=== PATIENT | female | born 1995 | race Caucasian/White ===

== ENCOUNTER 2020-09-15 18:35 | Emergency (ER) | payer BC, SELFPAY ==
--- NOTE | 2020-09-15 18:41 | ED.FEMALEGU ---
HPI - Female Genitourinary General Chief complaint: Urogenital-Female Stated complaint: uti Time Seen by Provider: 09/15/20 18:41 Source: patient and RN notes reviewed Mode of arrival: ambulatory Limitations: no limitations History of Present Illness HPI Narrative: 25-year-old female presents to the [facility] with complaints of symptoms of UTI since Wednesday, 4 days ago. Patient has had nausea, lower abdominal pressure, lower back pain, frequency and urgency. Has had fevers. Denies any significant past history. Related Data Allergies Allergy/AdvReac Type Severity Reaction Status Date / Time No Known Allergies Allergy Unknown Unknown Verified 09/15/20 18:50 Review of Systems Review of Systems: All systems reviewed & are unremarkable except as noted in HPI and below Constitutional: Constitutional: Reports as per HPI and Reports chills Eyes: Eyes: Reports no additional eye complaints Cardiovascular: Cardiovascular: Reports no additional cardiovascular complaints and Denies chest pain Respiratory: Respiratory: Reports no additional respiratory complaints, Denies chest congestion, Denies cough, Denies dyspnea and Denies wheezing Gastrointestinal: Gastrointestinal: Reports as per HPI, Denies constipation, Denies diarrhea, Reports nausea and Reports vomiting Genitourinary: Genitourinary: Reports as per HPI, Reports dysuria, Denies pelvic pain, Denies flank pain and Denies vaginal discharge Musculoskeletal: Musculoskeletal: Reports as per HPI and Reports back pain (Lower) Integumentary/Breasts: Skin/Breast: Reports system reviewed and no additional complaints, except as docu and Denies rash Neurologic: Reports system reviewed and no additional complaints, except as documented and Denies headache(s) Psychiatric: Psychiatric: Reports no additional psychiatric complaints PMFSH Social History Social History Smoking status: Never smoker Alcohol intake: never Gender identity (if verbalized by the patient): Female Comments At the time of my signature, I reviewed and agree with the nursing past medical, surgical, social, and family history. There is no relevant family history pertinent to the patient complaint. Exam Const: General: alert and ill appearing acutely Nutritional Appearance: well nourished and obese morbidly obese Orientation/consciousness: patient oriented x3 HENMT: Head: normal to inspection Neck: Neck: normal visual inspection, no lymphadenopathy and no meningeal signs Chest: Chest palpation & inspection: normal inspection of the chest Resp: Effort & Inspection: normal respiratory effort and no use of accessory muscles Auscultation: clear to auscultation bilaterally, no rales, no rhonchi and no wheezes Cardio: Rate: regular rate Rhythm: regular rhythm GI: GI Palp: Yes Soft to palpation, No Tenderness to palpation present (GI), No Guarding due to palpation present (GI) and No Rebound tenderness present Auscultation: normal bowel sounds : General: Yes Bladder palpation abnormal tender and Yes no CVA tenderness Back/Spine/Pelvis: Back: no CVA tenderness Other: low back pain Skin: General skin exam: normal color Rashes: no rashes Wounds: no wounds Neuro: General: patient oriented x3, moves all extremities, no meningeal signs and no focal motor deficits Speech: normal speech Gait exam (Neuro): Normal gait present Extrem: General: normal to inspection and no pedal edema Psych: Appearance: grossly normal and well kempt Mental Status: mental status grossly normal Affect: normal affect Attitude: cooperative Thought content: Yes Normal thought content present Judgement: Good judgement present (Psych) Course Course Emergency Course: Discharge instructions reviewed with patient, as well as provided in writing per nursing staff. The instructions also include specific and strict return/GO TO THE ER as well as f/u information. All questions have b
[2020-09-15 18:43] VITALS: BP 140/90; PULSE 118; RESP 16; TEMP 37.9; O2SAT 100
[2020-09-15 18:50] VITALS: BP 140/90; PULSE 118; RESP 16; TEMP 37.9; O2SAT 100
[2020-09-15] MEDS: cefTRIAXone 1 GM VIAL IM (19:05)
[2020-09-15] MEDS: LIDOCAINE HCL 1% LOCAL INJ 20 ML VIAL 2.1 ML IM (19:05)
[2020-09-15 19:11] VITALS: TEMP 37.9
[2020-09-15] MEDS: ACETAMINOPHEN 500 MG TABLET 1000 MG PO (19:11)
[2020-09-15 19:29] VITALS: TEMP 38.7
[2020-09-15] MEDS: IBUPROFEN 600 MG TABLET PO (19:29)
[2020-09-15 19:49] VITALS: TEMP 38.3
== END 2020-09-15 19:49 | disposition home or self-care (01) ==
PROVIDERS: Emergency Provider Nurse Practitioner
DX: N30.01 Acute cystitis with hematuria (principal)
CPT/HCPCS: 81003; 81025; 87077; 87086; 87088; 87186; 96372; 99213; A9270; G0463; J0696

== ENCOUNTER 2020-09-16 17:14 | Emergency (ER) | payer BC, MEDICAID, SELFPAY ==
[2020-09-16 17:15] VITALS: BP 128/84; PULSE 130; RESP 20; TEMP 37.3; O2SAT 98
[2020-09-16 17:32] LABS: Basophils Absolute Auto 0.1 K/mm3 (0.0-0.1); Basophils Percent Auto 0.4 % (0.2-1.2); Eosinophils Absolute Auto 0.1 K/mm3 (0-0.3); Eosinophils Percent Auto 0.5 % (0-4.4); Immature Granulocyte Absolute 0.09 K/mm3 (0.00-0.031); Immature Granulocyte Percent A 0.5 % (0-0.5); Lymphocytes Percent Auto 14.4 % (18.3-44.2); Mean Corpuscular HGB Conc 33.3 g/dl (32-36); Mean Corpuscular Volume 93.1 fl (80-100); Mean Platelet Volume 11.6 fl (7.4-10.4); Monocytes Absolute Auto 1.2 K/mm3 (0.1-0.6); Monocytes Percent Auto 7.1 % (2.6-8.5); Neutrophils Absolute Auto 12.9 K/mm3 (1.3-6.7); Neutrophils Percent Auto 77.1 % (45.5-73.1); Platelet Count Result 240 k/mm3 (150-375); Red Blood Count 4.19 M/mm3 (4.2-5.4); Red Cell Distribution Width 12.8 % (11.5-14.5); White Blood Count 16.7 K/mm3 (4.5-10.0)
[2020-09-16 17:38] LABS: Add Urine Microscopic? YES; Appearance Urine Cloudy (Clear); Bacteria Urine Trace /hpf; Bilirubin Urine Negative (Negative); Blood Urine 3+ (Negative); Color Urine Amber (Yellow); Glucose Urine UA Negative (Negative); Ketones Urine Trace mg/dL (Negative); Leukocyte Esterase Ur 1+ LEU/UL (Negative); Mucus Urine Rare /lpf; Nitrate Urine Negative (Negative); Protein Urine 2+ mg/dL (Negative); RBC Urine >75 /hpf (0-2); Specific Grav Ur 1.021 (1.001-1.035); Squamous Epithelial Cell Urine Many /hpf (Few); Transitional Epi Cells Urine Rare /hpf (None Seen); WBC Urine 31-50 /hpf
[2020-09-16 17:44] LABS: Alanine Aminotransferase 60 U/L (4-35); Alkaline Phosphatase 133 U/L (38-126); Anion Gap 14 mmol/L (8-16); Aspartate Amino Transferase 28 U/L (14-36); Bilirubin,Total 0.6 mg/dL (0.2-1.3); Blood Urea Nitrogen 8 mg/dL (7-17); Calcium 8.8 mg/dL (8.4-10.2); Carbon Dioxide 22 mmol/L (22-30); Chloride 104 mmol/L (98-107); Estimated CRCL calculation 97 ml/min; Estimated Glomerular Filt Rate > 60; Glucose 109 mg/dL (65-105); Potassium 3.5 mmol/L (3.4-5.0); Sodium 140 mmol/L (137-145)
--- NOTE | 2020-09-16 19:02 | PC.NURSE ---
Pt came up to triage desk and states that she is going to go to another hospital
== END 2020-09-16 19:02 | disposition left against medical advice (07) ==
PROVIDERS: Emergency Provider Emergency Medicine
DX: R11.2 Nausea with vomiting, unspecified (principal)
CPT/HCPCS: 36415; 80053; 81001; 85025; 99199

== ENCOUNTER 2024-06-12 07:21 | Emergency (ER) | payer OTHER, SELFPAY ==
[2024-06-12 07:27] VITALS: BP 137/90; PULSE 113; RESP 20; TEMP 36.6; O2SAT 100
--- NOTE | 2024-06-12 09:18 | ED.SKABFB ---
HPI - Skin/Abscess/Foreign Bdy General Chief complaint: Skin/Abscess/Foreign Body Stated complaint: right labial abscess Time Seen by Provider: 06/12/24 07:53 History of Present Illness HPI narrative: Patient is a 29-year-old female who presents ER with concern for lump/mass in her labia. She has had a chronic cyst in the area that she began messing with a few days ago. It then became enlarged and painful. It is intermittently drained. She is very tender. No dysuria. Related Data Allergies Allergy/AdvReac Type Severity Reaction Status Date / Time No Known Allergies Allergy Unknown Unknown Verified 06/12/24 07:29 Review of Systems Constitutional: Constitutional: Reports no additional constitutional complaints ENT: Reports system reviewed and no additional complaints, except as documented Cardiovascular: Cardiovascular: Reports no additional cardiovascular complaints Respiratory: Respiratory: Reports no additional respiratory complaints Genitourinary: Genitourinary: Reports no additional female genitourinary complaints PMFSH Past Medical History Medical History (Updated 06/12/24 @ 18:36 by Wayne Corrales MD) Healthy female adult Surgical History Surgical History (Updated 06/12/24 @ 18:36 by Wayne Corrales MD) No pertinent past surgical history Social History Social History Smoking status: Never smoker Alcohol intake: never Gender identity (if verbalized by the patient): Female Exam Narrative: GENERAL: uncomfortable-appearing, well-nourished, and in no acute distress. HEAD: Normocephalic, atraumatic. ENT: Mucous membranes moist. CHEST: Clear to auscultation. No respiratory distress. HEART: Regular rate and rhythm. Normal peripheral pulses. ABDOMEN: Soft, nontender, nondistended. : Swelling right labia minora and fold with fluctuance. Also fluctuant within the vagina as well. Mild vaginal bleeding. The swelling is more superior near the clitoris, not inferior where a bartholins gland would be. EXTREMITIES: Normal range of motion. No edema. SKIN: Warm, dry, no rash. NEURO: Alert and oriented x3. PSYCH: Normal mood and affect. Course Course Emergency Course: Patient with Parkway's gland abscess that was drained with a fine-needle aspiration and palpation after talking to Dr. Ram with Gynecology. Patient will be started on oral antibiotics and may follow-up in his clinic. Vital Signs Vital signs: Vital Signs Temperature 97.9 F 06/12/24 07:27 Pulse Rate 113 H 06/12/24 07:27 Respiratory Rate 20 06/12/24 07:27 Blood Pressure 137/90 06/12/24 07:27 Pulse Oximetry 100 06/12/24 07:27 Oxygen Delivery Room Air 06/12/24 07:27 Temperature 97.9 F 06/12/24 07:27 Pulse Rate 113 H 06/12/24 07:27 Respiratory Rate 20 06/12/24 07:27 Blood Pressure 137/90 06/12/24 07:27 Pulse Oximetry 100 06/12/24 07:27 Oxygen Delivery Room Air 06/12/24 07:27 Procedures Abscess I/D skene: Date of Incision: 06/12/24 Time of Incision: 09:10 Side (if applicable): right Local Anesthetic: lidocaine 1% and with epi Amount of anesthesia used (mL): 3 Technique: needle aspiration Irrigation: No Packing used?: none I&D Results: Pus Discharge Plan Discharge Clinical Impression: Abscess of Parkway duct Patient Disposition: Home, Self-Care Condition: Stable Instructions: Antibiotic Form, Abscess (ED) Additional Instructions: You have an abscessed cyst of your Parkway's gland. Apply warm compresses and do warm Sitz salt water baths twice a day to keep very soft and encourage drainage. Take Tylenol with hydrocodone for pain. Take antibiotics to help prevent recurrent infection. Follow-up with Gynecology. Patient Language: Palestinian Prescriptions: New cefuroxime axetil 500 mg tablet 500 mg PO Q12H Qty: 14 0RF hydrocodone-acetaminophen 5-325 mg tablet 1 tablet PO Q6H PRN (Reason: pain) Qty: 8 0RF No Action sulfamethoxazole-trimethoprim [Bactrim DS] 800-160 mg tablet 1 tablet PO Q12H Qty: 14 0RF ondansetron HCl [Zofran] 4 mg tablet 4 mg PO Q8H PRN (Reason: nausea and vomiting) Qty: 12 0RF Follow-up/Referrals: Jerry Wang MD [Physician] - 1 Week UNKNOWN,DOCTOR [Primary Care Provider] -
[2024-06-12] MEDS: LIDO 1%/EPINEPHRINE 1:100,000 20 ML VIAL (09:26)
[2024-06-12] MEDS: HYDROcodone/acetaminophen (*CRX) 5-325 MG TABLET 1 TAB PO (09:26)
== END 2024-06-12 09:41 | disposition home or self-care (01) ==
PROVIDERS: Emergency Provider Emergency Medicine
DX: N34.0 Urethral abscess (principal)
CPT/HCPCS: 10160; 99283; A9270; J2004

== ENCOUNTER 2024-12-16 15:25 | Emergency (ER) | payer OTHER, SELFPAY ==
[2024-12-16 15:35] VITALS: BP 118/71; PULSE 84; RESP 20; TEMP 38.1; O2SAT 98
--- NOTE | 2024-12-16 15:38 | ED.EAR ---
HPI - Ear Problem General Chief complaint: Ear Stated complaint: left ear pain patient presents to the [facility] with complaints significant left ear pain a mild right ear pain that began the last few days. Noted for the last week having nasal congestion, nasal drainage, significant cough, chills, feeling fevers, and sore throat. this symptoms have gotten slightly better with use DayQuil and NyQuil. No history of ear infections but noted having occasional sinus infections. Denies shortness of breath, dizziness, nausea, vomiting, diarrhea. Related Data Allergies Allergy/AdvReac Type Severity Reaction Status Date / Time No Known Allergies Allergy Unknown Unknown Verified 12/16/24 15:35 Review of Systems Constitutional: Constitutional: Reports as per HPI, Reports chills, Reports fatigue, Reports fever(s) and Denies weakness Eyes: Eyes: Reports no additional eye complaints ENT: Reports as per HPI, Denies vertigo, Denies dizziness, Reports nasal congestion and Reports sore throat Comments: Pain in both ears Cardiovascular: Cardiovascular: Reports no additional cardiovascular complaints Respiratory: Respiratory: Reports as per HPI, Reports chest congestion, Reports cough, Denies dyspnea and Denies wheezing Gastrointestinal: Gastrointestinal: Reports as per HPI, Denies diarrhea, Denies nausea and Denies vomiting Musculoskeletal: Musculoskeletal: Reports as per HPI and Reports myalgias Integumentary/Breasts: Skin/Breast: Reports as per HPI, Denies pruritus, Denies erythema and Denies rash Neurologic: Reports as per HPI, Denies vertigo, Denies dizziness, Reports headache(s) and Denies weakness Psychiatric: Psychiatric: Reports no additional psychiatric complaints Endocrine: Endocrine: Reports no additional endocrine complaints Hematologic/Lymphatic: Hematologic/Lymphatic: Reports no additional hematologic/lymphatic complaints Allergic/Immunologic: Allergic/Immunologic: Reports no additional allergic/immunologic complaints PMFSH Past Medical History Medical History (Updated 12/16/24 @ 15:43 by SAMMY VazquezC) Healthy female adult Surgical History Surgical History (Updated 06/12/24 @ 18:36 by Wayne Corrales MD) No pertinent past surgical history Social History Social History Smoking status: Never smoker Alcohol intake: never Gender identity (if verbalized by the patient): Female Exam Const: General: healthy appearing and no acute distress Nutritional Appearance: well nourished Orientation/consciousness: patient oriented x3 Limitations: no limitations HENMT: Head: normal to inspection Ears: external ears normal and TM's abnormal bilaterally Face/Nose/Sinus: Normal external nose present and nares abnormal ( mild erythema bilaterally) Face and sinus: normal facial exam and sinus tenderness (bilateral ) maxillary Mouth: Yes Normal oral and palatal mucosa present, Yes lip normal and Yes moist mucous membranes Throat: posterior oropharynx abnormal ( moderate erythema, no edema or exudate noted) Other: left TM significant erythema, loss of bony landmarks, dullness. Right TM mild erythema with minimal loss of bony landmarks. Neck: Neck: normal visual inspection and no lymphadenopathy Resp: Effort & Inspection: normal respiratory effort Auscultation: clear to auscultation bilaterally Other: Congested cough noted Cardio: Rate: regular rate Rhythm: regular rhythm Skin: General skin exam: normal color Rashes: no rashes Wounds: no wounds Neuro: General: patient oriented x3 and moves all extremities Speech: normal speech Gait exam (Neuro): Normal gait present Psych: Mental Status: mental status grossly normal Affect: normal affect Attitude: cooperative Course Course Level of Care: Express Care Visit Vital Signs Vital signs: Vital Signs Temperature 100.5 F H 12/16/24 15:35 Pulse Rate 84 12/16/24 15:35 Respiratory Rate 20 12/16/24 15:35 Blood Pressure 118/71 12/16/24 15:35 Pulse Oximetry 98 12/16/24 15:35 Oxygen Delivery Room Air 12/16/24 15:35 Temperature 100.5 F H 12/16/24 15:35 Pulse Rate 84 12/16/24 15:35 Respiratory Rate 20 12/16/24 15:35 Blood Pressure 118/71 12/16/24 15:35 Pulse Oximetry 98 12/16/24 15:35 Oxygen Delivery Room Air 12/16/24 15:35 Medical Decision Making MDM Narrative Medical decision making narrative: bilateral EOM noted. Illness symptoms and significant sinus pressure and drainage will use Augmentin for treatment The patient was evaluated by myself in the express care. History is obtained from patient who is an independent historian and physical exam was performed. Available medical records were reviewed at this time. Exam findings show no acute concerns or changes; patient is non-toxic appearing and is in no distress. Patient is appropriate for outpatient treatment and follow-up. I have evaluated and discussed social determinants of health with the patient that could potentially impact subsequent diagnosis and treatment plans. Differential diagnosis and treatment plan were discussed with the patient. Patient agrees with discussion and after shared medical decision making agrees with plan of care. All questions were answered to the patient's satisfaction. Differential Diagnosis Differential Diagnosis: otitis media, otitis externa sinusitis flu, COVID Medical Records Medical records reviewed: Yes I reviewed the external patient's medical records. Vital Signs Vital Signs: Vital Signs Temperature 100.5 F H 12/16/24 15:35 Pulse Rate 84 12/16/24 15:35 Respiratory Rate 20 12/16/24 15:35 Blood Pressure 118/71 12/16/24 15:35 Pulse Oximetry 98 12/16/24 15:35 Oxygen Delivery Room Air 12/16/24 15:35 Temperature 100.5 F H 12/16/24 15:35 Pulse Rate 84 12/16/24 15:35 Respiratory Rate 20 12/16/24 15:35 Blood Pressure 118/71 12/16/24 15:35 Pulse Oximetry 98 12/16/24 15:35 Oxygen Delivery Room Air 12/16/24 15:35 Discharge Plan Discharge Clinical Impression: Acute otitis media, bilateral, Sinusitis Patient Disposition: Home Condition: Stable Instructions: Antibiotic Form, Sinusitis (ED), Ear Infection (ED) Additional Instructions: take the antibiotics until gone. May use probiotics or yogurt daily to help with upset stomach /diarrhea with antibiotic use. May use Tylenol and ibuprofen to help with pain or fever. May use warm compresses to the outside of the ear to help with pain. Can also use Sudafed and Flonase nasal spray to help with symptoms associated with ear infection and help the ears drain. Follow-up with primary care physician if symptoms not improving or worsen. Patient Language: Bahraini Prescriptions: New amoxicillin-pot clavulanate 875-125 mg tablet 1 tablet PO Q12H Qty: 20 0RF Follow-up/Referrals: PHYSICIAN,[employer] [Primary Care Provider, Internal Medicine] Time of Disposition: 15:43
== END 2024-12-16 15:46 | disposition home or self-care (01) ==
PROVIDERS: Emergency Provider Nurse Practitioner Family
DX: H66.93 Otitis media, unspecified, bilateral (principal); J32.9 Chronic sinusitis, unspecified
CPT/HCPCS: 99213; G0463